=== PATIENT | female | born 1960 | race Caucasian/White ===

== ENCOUNTER 2018-04-23 07:17 | Emergency (ER) | payer BC, OTHER ==
[~2018-04-23] VITALS: Ht 558.9 cm; Wt 58.0 kg
[2018-04-23] MEDS ORDERED: methylPREDNISolone sod succ 125mg/2ml vial IV ONE (07:35)
[2018-04-23] MEDS ORDERED: famotidine/PF 10 mg/ml inj IV ONE (07:35)
[2018-04-23] MEDS ORDERED: diphenhydrAMINE 50 mg/ml inj IV ONE (07:35)
[2018-04-23] MEDS ORDERED: epiNEPHrine 1 mg/ml inj SQ ONE (07:35)
[2018-04-23] MEDS ORDERED: normal saline 1000ML IV soln IVB STA (07:35)
[2018-04-23 09:39] VITALS: BP 161/79
[2018-04-23] MEDS ORDERED: PRED20TA PO (09:53)
[2018-04-23] MEDS ORDERED: DIPH25CA83 PO (09:53)
[2018-04-23] MEDS ORDERED: OMEP40CA37 PO (09:53)
== END 2018-04-23 10:06 | disposition home or self-care (01) ==
LOC: ER 07:18
DX: T78.40XA Allergy, unspecified, initial encounter (principal); Z88.8 Allergy status to other drugs, medicaments and biological substances
CPT/HCPCS: 96372; 96374; 96375; 99284; J0171; J1200; J2930; J7030; 96361